=== PATIENT | female | born 1970 | race Caucasian/White ===

== ENCOUNTER 2017-05-01 16:55 | Day surgery (SDC) | payer OTHER ==
[2017-05-01] MEDS ORDERED: MIDAZOLAM 1 MG/ML 2 ML INJ (18:33)
[2017-05-01] MEDS ORDERED: FENTAnyl 50 MCG/ML VIAL ×2 (18:33→20:12)
[2017-05-01] MEDS ORDERED: PROPOFOL 20 ML (18:36)
[2017-05-01] MEDS ORDERED: LIDOCAINE 2% (SDV) 5 ML INJ (18:36)
[2017-05-01] MEDS: SODIUM CHLORIDE 0.9% 1L IRRIG IRR (19:08)
[2017-05-01] MEDS ORDERED: CEFAZOLIN 1 GM INJ (19:34)
[2017-05-01] MEDS ORDERED: ONDANSETRON 4 MG INJ ×2 (19:34→20:36)
[2017-05-01] MEDS ORDERED: HYDROmorphONE (0.2 MG/ML) 10ML SYG IV ×2 (20:00)
[2017-05-01] MEDS ORDERED: DIPHENHYDRAMINE 50 MG INJ IV (20:00)
[2017-05-01] MEDS ORDERED: MEPERIDINE 25 MG INJ IV (20:00)
[2017-05-01] MEDS: FENTAnyl 50 MCG/ML VIAL IV (20:15)
[2017-05-01] MEDS: ONDANSETRON 4 MG INJ IV (20:38)
== END 2017-05-01 21:16 | disposition home or self-care (01) ==
LOC: SDS 16:55
DX: N84.0 Polyp of corpus uteri (principal); I10 Essential (primary) hypertension
CPT/HCPCS: 58558; 88305